=== PATIENT | female | born 1995 | race Caucasian/White ===

== ENCOUNTER → 2021-02-28 00:17 | Outpatient (CLI) | payer OTHER, SELFPAY ==
[2021-02-28 16:43] LABS: SARS-CoV-2 RNA PCR Negative
== END ==
PROVIDERS: Visit Provider Surgery Plastic and Reconstructive Surgery
DX: Z01.812 Encounter for preprocedural laboratory examination (principal); Z20.822 Contact with and (suspected) exposure to COVID-19
CPT/HCPCS: C9803; U0003; U0005

== ENCOUNTER 2021-03-03 00:44 | Day surgery (SDC) | payer OTHER, SELFPAY ==
[2021-02-24 14:42] VITALS: BMI 31.9
[2021-03-03] VITALS (7 sets, daily range): BP systolic 110–140; BP diastolic 60–76; PULSE 81–98; RESP 10–16; TEMP 36.9–37.1; O2SAT 92–100
[2021-03-03] MEDS: LACTATED RINGERS 1,000 ML 30 ML IV CONT ×2 (10:08→16:00)
[2021-03-03 10:11] LABS: Urine Cotinine NEGATIVE
--- NOTE | 2021-03-03 10:43 | WPDANESEPPF ---
Anes - Initial Pre Proc Eval Procedure: Operation Date: 03/03/21 11:30 Proposed Procedures p Bilateral Breast Augmentation with Silicone, - Duong Lawson MD s Bilateral Breast Mastopexy - Duong Lawson MD Date/Time: 03/03/21 10:43 Surgeon: Duong Lawson MD Pre Op Diagnosis: micromastia , breast ptosis Patient Data Age: 25 Gender: F Height: 1.6 m Weight: 83.4 kg Last Vital Signs Temp 98.8 F 03/03/21 09:49 Pulse 83 03/03/21 09:49 Resp 16 03/03/21 09:49 BP 122/76 03/03/21 09:49 Pulse Ox 100 03/03/21 09:49 Allergies Allergy/AdvReac Type Severity Reaction Status Date / Time loratadine [From Claritin] Allergy Intermediate Hives Verified 03/03/21 09:57 Home Medications Medication Instructions Recorded Confirmed Type zbjtfhwiva-ibphtllidsncc-cnlz 1 cap PO Q4-6H PRN 02/24/21 03/03/21 History carisoprodol 350 mg tablet 350 mg PO TID PRN #21 tablet 02/24/21 03/03/21 Rx docusate sodium 100 mg capsule 100 mg PO DAILY #14 cap 02/24/21 03/03/21 Rx norethindrone-e.estradiol-iron 1 tablet PO DAILY 02/24/21 03/03/21 History [Blisovi 24 Fe] ondansetron HCl 4 mg tablet 4 mg PO Q8H #21 tablet 02/24/21 03/03/21 Rx oxycodone-acetaminophen 5 mg-325 1 tablet PO Q6H PRN #15 tablet 02/24/21 03/03/21 Rx mg tablet Laboratory Tests 03/03/21 09:51 Cotinine Negative Patient hx anesthesia problems: none Family hx anesthesia problems: none PMFSH Past Medical History Medical History (Updated 03/03/21 @ 10:39 by Carlos Castrejon MD) Anxiety Surgical History Surgical History History of Social History Social History Smoking status: Former smoker Tobacco type: cigarettes and e-cigarettes/vaping Smoking end date: 01/25/21 Additional smoking assessment comments: pt stated she stopped vaping 1 month ago Alcohol intake: never Substance use: former Substance use type: crack/cocaine, amphetamines and methamphetamine Other substance usage details: pt stated she graduated 1 year ago Last use: 2 years Living arrangements: with family Gender identity (if verbalized by the patient): Male Sexual Orientation (if Verbalized by the Patient): Straight or Heterosexual Spiritual care concerns: No Anes - Eval Final PreProcedure Day of Procedure 03/03/21 10:43 Patient weight: overweight Heart: regular rate and rhythm Lungs: clear to auscultation Airway: Mallampati scale class II Neurological: alert and oriented Last oral intake: >/= 8 hours ASA classification: II Emergent: no Anesthetic plan: proceed Anesthesia type and monitoring: general LMA (or ETT) and standard monitoring Informed Consent: The patient's anesthetic plan and its attendant risks and benefits were discussed with the patient/family/POA. Questions were solicited and answers provided to the satisfaction of the patient/family/POA.
--- NOTE | 2021-03-03 10:53 | SUR.PREOP ---
informed pt delay in procedure.
--- NOTE | 2021-03-03 12:44 | WPDHPUPDATE1 ---
History and Physical Update Update Date/Time: 03/03/21 12:44 History and Physical has been reviewed, including an updated exam of the patient. There are NO changes in the patient's condition. Risks, benefits, and alternatives have been discussed and questions answered. Patient agrees to proceed with procedure.
--- NOTE | 2021-03-03 13:12 | P.OP_ITS ---
Procedure Note - Detailed Date of Procedure 03/03/21 Pre-op Diagnosis micromastia , breast ptosis Post-op Diagnosis same Procedure Performed Bilateral Augmentation Mastopexy Surgeon Duong Lawson MD Anesthesia general Findings Bilateral Superior Pedicle Invert T Mastopexy Bilateral [facility] SoftTouch 445cc Right - REF# [id number] SN [id number] Left - REF# [id number] SN [id number] Description of Procedure She is here today for bilateral breast augmentation. Previously and again today the risks, benefits, alternatives were discussed in extensive detail. I wanted her to be very realistic about the risks involved as well as expectations. We discussed aftercare and what to monitor for. Made sure answered all of her questions to her satisfaction today and consent was obtained. Marked in the preoperative holding area with their verification. The patient was taken to the operating room placed supine on the operating table. Anesthesia was provided by anesthesiology. A surgical time-out was taken. We cleansed the skin and 1% lidocaine and 0.25% Marcaine with epinephrine was used anesthetize as a field block. She was prepped and draped in a standard sterile fashion. Tegaderm nipple Padron were placed. A 15 blade used to make an incision above the inframammary fold de-epithelializing a small inferior flap in order to provide protection at the T junction. Dissection was continued at 45 degree angle until the chest wall as identified. I incised the pectoralis major along its inferior border and completely released the inferior border leaving the medial border intact. I created a subpectoral pocket in the appropriate dimensions based on our preoperative planning for the implant. I then copiously irrigated with saline solution and verified a strict hemostasis. Next the use a triple antibiotic and Betadine containing solution to irrigate the pocket. I washed my gloves with the triple antibiotic and Betadine solution. We washed the implant immediately upon opening it with this solution and only opened it when we needed it. I used implant funnel and no-touch technique. The implant was introduced into the pocket using the funnel. Having verified positioning of the implant this was closed using 2-0 Vicryl. I then tailor tacked the breast into position. Verified the markings. Marked out the nipple-areolar complex at 38 mm based on preoperative planning and intraoperative observations and measurements which were in full agreement. Placed supine. De-epithelialized the superior pedicle. The remove the excess soft tissue on the inferior medial aspect bilateral. Elevated medial and lateral flaps which were well-vascularized provide for closure. I then copiously irrigated with saline solution and verified a strict hemostasis. I closed using 2-0 Vicryl along the IMF as well as vertically. 3-0 Monocryl arou nd the areola and vertically. 3-0 strata fix along the IMF. Finally closure was running subcuticular 4-0 Monocryl and tissue glue. Fluffs, Darian wrap, and surgical bra were placed. Patient was awoke and taken to PACU without difficulty. All instrument sponge counts were correct at the end of the case. Estimated Blood Loss 20 Drains No Packing No Pathology none sent Complications No immediate complications Condition stable Disposition PACU
--- NOTE | 2021-03-03 13:28 | SUR.PREOP ---
1230 pt informed further delay.
[2021-03-03] MEDS: ceFAZolin 2 GM/D5W 50 ML 2 GM/50 ML BAG IVPB (13:37)
[2021-03-03] MEDS: TRANEXAMIC ACID 1,000MG/ISO100 1,000 MG/100 ML BAG 200 MG IVPB (13:56)
[2021-03-03] MEDS: fentaNYL CITRATE INJ (*CRX) 100 MCG/2 ML VIAL 25 MCG IV PUSH ×4 (16:08→16:19)
--- NOTE | 2021-03-03 16:23 | SUR.PHASEI ---
Simple mask removed at 1622.
[2021-03-03] MEDS: HYDROmorphone HCL INJ (*CRX) 1 MG/ML SYR 0.25 MG IV PUSH ×3 (16:30→17:05)
[2021-03-03] MEDS: oxyCODONE HCL (*CRX) 5 MG TAB IR PO (17:28)
== END 2021-03-03 18:02 | disposition home or self-care (01) ==
PROVIDERS: PCP Nurse Practitioner Family; Visit Provider Surgery Plastic and Reconstructive Surgery
PROC: (CPT 19316; principal; 2021-03-03 11:30)
PROC: (CPT 19316; 2021-03-03 11:30)
DX: Z41.1 Encounter for cosmetic surgery (principal); N64.81 Ptosis of breast; N64.82 Hypoplasia of breast; F41.9 Anxiety disorder, unspecified; F17.290 Nicotine dependence, other tobacco product, uncomplicated
CPT/HCPCS: 19316; 19325; 80307; A9270; J0131; J0690; J1100; J1170; J1580; J2250; J2405; J2704; J2710; J3010; J7120

== ENCOUNTER 2022-06-22 09:09 | Emergency (ER) | payer OTHER, SELFPAY ==
[2022-06-22 09:18] VITALS: BP 125/72; PULSE 114; RESP 16; TEMP 37.2; O2SAT 99
--- NOTE | 2022-06-22 09:27 | ED.URI ---
HPI - URI/Sore Throat General Chief Complaint: Upper Respiratory Infection Stated Complaint: Sore Throat Time Seen by Provider: 06/22/22 10:01 Source: patient and RN notes reviewed Mode of arrival: ambulatory Limitations: no limitations History of Present Illness HPI Narrative: 27-year-old female presents concern for 3 day history of sore throat, swollen glands, body aches, fever, headache, general malaise. Reports she has been taking Tylenol ibuprofen. She reports her children at home have runny noses. She reports fever up to 102 MD elicited complaint: cough and sore throat Related Data Home Medications Medication Instructions Recorded Confirmed myuyhljjbz-scihxboeenvtf-nomzzcky 1 cap PO Q4-6H PRN headache 02/24/21 06/22/22 50 mg-325 mg-40 mg capsule norethindrone 1 mg-ethinyl 1 tablet PO DAILY 02/24/21 06/22/22 estradiol 20 mcg (24)-iron 75 mg (4) tablet (Blisovi 24 Fe) amitriptyline 10 mg tablet 10 mg DAILY 06/22/22 06/22/22 Allergies Allergy/AdvReac Type Severity Reaction Status Date / Time loratadine [From Claritin] Allergy Intermediate Hives Verified 06/22/22 09:36 Review of Systems Review of Systems: CONSTITUTIONAL: Reports malaise, fever. EYES: Denies visual changes, redness, or discharge. ENT: Denies rhinorrhea, congestion, sinus pain, otalgia. Reports sore throat. CARDIOVASCULAR: Denies chest pain, palpitations, or edema. RESPIRATORY: Denies cough. Denies dyspnea. GASTROINTESTINAL: Denies abdominal pain, nausea, vomiting, diarrhea SKIN: Denies rash or itching. MUSCULOSKELETAL: Reports myalgia. NEUROLOGIC: Reports headache. All systems reviewed & are unremarkable except as noted in HPI and below PMFSH Past Medical History Medical History Anxiety Surgical History Surgical History History of Social History Social History Tobacco type: cigarettes and e-cigarettes/vaping Smoking end date: 01/25/21 Additional smoking assessment comments: pt stated she stopped vaping 1 month ago Alcohol intake: never Substance use: former Substance use type: crack/cocaine, amphetamines and methamphetamine Other substance usage details: pt stated she graduated 1 year ago Last use: 2 years Gender identity (if verbalized by the patient): Male Sexual Orientation (if Verbalized by the Patient): Straight or Heterosexual Spiritual care concerns: No Comments At time of signature, agree with nursing past medical, surgical, social and family history. There is no relevant family history pertinent to the presenting complaint Exam Narrative: GENERAL: Nontoxic appearing and in no acute distress. HEAD: Normocephalic EYES: PERRLA, conjunctivae clear ENT: Nares clear. Mucous membranes moist. TM pearly kowalski with sharp light reflex bilaterally; no tragal tenderness. Oropharynx erythematous without lesions. Tonsils enlarged and without exudate, no drooling, no hoarseness, no trismus, uvula midline. NECK: Supple. No lymphadenopathy CHEST: Clear to auscultation, breath sounds equal. No wheezing, rhonchi, rales, or stridor. No respiratory distress, speaks in full sentences. HEART: Regular rate and rhythm. No murmur heard. SKIN: Warm, dry, no rash. NEURO: Alert and oriented x3. PSYCH: Normal mood and affect Course Course Emergency Course: Patient is aware of diagnosis, understands and agrees to treatment plan. Anticipatory guidance given. Patient agrees to follow-up as directed and is aware of reasons to seek care at the emergency department. Portions of this record may have been created with voice recognition software Level of Care: Express Care Visit Vital Signs Vital signs: Vital Signs Temperature 99.0 F 06/22/22 09:18 Pulse Rate 114 H 06/22/22 09:18 Respiratory Rate 16 06/22/22 09:18 Blood Pressure 1
== END 2022-06-22 10:14 | disposition home or self-care (01) ==
PROVIDERS: Emergency Provider Nurse Practitioner; PCP Internal Medicine
DX: J02.0 Streptococcal pharyngitis (principal); F17.209 Nicotine dependence, unspecified, with unspecified nicotine-induced disorders
CPT/HCPCS: 87880; 99213; G0463

== ENCOUNTER 2024-03-22 09:06 | Outpatient (CLI) | payer OTHER, SELFPAY ==
--- NOTE | ~2024-03-22 | XR_ITS ---
EXAMINATION: XR abdomen/kub 1V DATE: 03/22/2024 09:22 INDICATION: Constipation. TECHNIQUE: A supine view of the abdomen on 2 radiographs was obtained. COMPARISON: None. FINDINGS: There are no dilated loops of bowel. There is a large volume of stool in the colon. IMPRESSION: 1. Nonobstructive bowel gas pattern. Reviewed, dictated and finalized at location A.
[2024-03-22 19:21] LABS: Hematocrit 43.3 % (37.0-47.0); Hemoglobin 13.9 g/dL (12.0-15.0); Mean Corpuscular HGB Conc 32.1 g/dl (32-36); Mean Corpuscular Volume 96.4 fl (80-100); Mean Platelet Volume 9.5 fl (7.4-10.4); Platelet Count Result 293 k/mm3 (150-375); Red Blood Count 4.49 M/mm3 (4.2-5.4); White Blood Count 9.4 K/mm3 (4.5-10.0)
[2024-03-22 19:36] LABS: Alanine Aminotransferase 22 U/L (6-35); Albumin Level 4.1 g/dL (3.5-5.1); Alkaline Phosphatase 60 U/L (38-126); Anion Gap 10 mmol/L (4-12); Aspartate Amino Transferase 53 U/L (14-36); Bilirubin,Total 0.3 mg/dL (0.2-1.3); Blood Urea Nitrogen 22 mg/dL (7-17); Calcium 9.5 mg/dL (8.4-10.2); Carbon Dioxide 22 mmol/L (22-30); Chloride 106 mmol/L (98-107); Cholesterol 169 mg/dL (0-200); Estimated Glomerular Filt Rate > 60; Glucose 67 mg/dL (65-110); HDL Direct 54 mg/dL; Potassium 4.2 mmol/L (3.4-5.0); Sodium 138 mmol/L (137-145); Triglycerides 189 mg/dL (<150)
[2024-03-22 19:47] LABS: LDL Cholesterol Direct 70 mg/dL
== END 2024-03-22 09:07 | disposition home or self-care (01) ==
LOC: ANHBWCLAB 09:08
PROVIDERS: PCP Nurse Practitioner Adult Health; Visit Provider Nurse Practitioner Adult Health
DX: Z13.9 Encounter for screening, unspecified (principal); K59.00 Constipation, unspecified
CPT/HCPCS: 36415; 74018; 80053; 80061; 84439; 84443; 85027

== ENCOUNTER 2024-09-23 13:28 | Emergency (ER) | payer BC, SELFPAY ==
--- OUTSIDE RECORDS SUMMARY | 2024-09-23 13:30 | XMS_ITS | Clinical Summary ---
Author Organization [facility] Address [address] [place] [address] Care Team Providers Care Hvac Service Tech Name Role Phone Jayy Noble SERVICE DOG TRAINER-CALIBRATION SPECIALIST Primary Care Provider [phone] Source Comments [facility],non-owned Affiliates and Associated Physician Practices is amultiple site organization consisting of ambulatory clinics and hospital sitesin [place], [place], [place] and [place]. This disclosure is being madepursuant to the Care Everywhere program and may not contain all information available regarding this patient. Last updated 18.[facility] Allergies Active Allergy Reactions Criticality Noted Date Comments Loratadine Rash Medium 11/25/2018 Medications * Be aware that medications may not be up to date on this document. Alwaysverify current medications with the patient. Medication Sig Dispensed Refills Start Date End Date Status hydrOXYzine hcl (ATARAX) 50 MG tabletIndications:Anx iety Take 1 tablet by mouth 2 times daily Reasons: Feeling Anxious 60 tablet 1 03/17/2018 Active Active Problems Problem Noted Date Diagnosed Date Major depressive disorder, r ecurrent severe without psychotic features 03/14/2018 Polysubstance abuse 03/14/2018 History of posttraumatic stress disorder (PTSD) 03/14/2018 ABIGAIL (generalized anxiety disorder) 03/14/2018 Social History Tobacco Use Types Packs/Day Years Used Date Smoking Tobacco: Every Day Cigarettes 1.5 6 Smokeless Tobacco: Current Tobacco Cessation:Ready to Q uit: No; Counseling Given: Yes Alcohol Use Standard Drinks/Week Comments Yes 2 (1 standard drink = 0.6 oz pur e alcohol) 2 - 3 drinks every weekend Sex and Gender Information Value Date Recorded Sex Assigned at Not on file Gender Identity Not on file Sexual Orientation Not on file Last Filed Vital Signs Vital Sign Reading Time Taken Comments Blood Pressure 122/80 07/09/2019 2:31 PM SOLUTION ADVISOR Pulse 100 07/09/2019 2:31 PM SOLUTION ADVISOR Temperature 36.6 C (97.8 F) 07/09/2019 2:31 PM SOLUTION ADVISOR Respiratory Rate 16 07/09/2019 2:31 PM SOLUTION ADVISOR Oxygen Saturation 98% 07/09/2019 2:31 PM SOLUTION ADVISOR Inhaled Oxygen Concentration - - Weight 79.4 kg (175 lb) 07/09/2019 2:31 PM SOLUTION ADVISOR Height 160 cm (5' 3 ) 07/09/2019 2:31 PM SOLUTION ADVISOR Body Mass Index 31 07/09/2019 2:31 PM SOLUTION ADVISOR Plan of Treatment Health Maintenance Due Date Last Done Comments PAP SMEAR 1993 HIV SCREENING 2008 HEPATITIS C SCREENING 04/19/2011 DTAP/TDAP/TD VACCINES (1 - Tdap) 2012 HEPATITIS B VACCINE (1 of 3 - 19+ 3-dose series) 2012 PNEUMOCOCCAL VACCINE (1 of 2 - PCV) 2012 COVID-19 VACCINE ( - 2023-2 5 season) 2024 INFLUENZA VACCINE (#1) 2024 DEPRESSION SCREENING 08/08/2024 ZOSTER VACCINE (1 of 2) 2043 HIB VACCINE Aged Out No longer eligi ble based on patient's age to complete this topic HPV VACCINE Aged Out No longer eligi ble based on patient's age to complete this topic MENINGOCOCCAL (Group B) VACCINE Aged Out No longer eligible based on patient's age to complete this topic MENINGOCOCCAL VACCINE Aged Out No yolanda marjorie eligible based on patient's age to complete this topic Advance Directives * Full Code (Latest Code Status on File) Date Activated Date Inactivated Comments 03/14/2018 10:11 AM 03/17/2018 12:35 PM Care Teams Hvac Service Tech Relationship Specialty Start Date End Date Jayy Noble, SERVICE DOG TRAINER-CALIBRATION SPECIALIST PCP - General Nurse Practitioner 03/14/18
--- OUTSIDE RECORDS SUMMARY | 2024-09-23 13:30 | XMS_ITS | Referral Summary ---
Author Organization [facility] Address [address] [place] [address] Care Team Providers Care Supervisor Cell Operation Name Role Phone Jayy Noble METAL WINDOW FRAME MAKER-CAGE CLERK Primary Care Provider [phone] Source Comments [facility],non-owned Affiliates and Associated Physician Practices is amultiple site organization consisting of ambulatory clinics and hospital sitesin [place], [place], [place] and [place]. This disclosure is being madepursuant to the Care Everywhere program and may not contain all information available regarding this patient. Last updated 18.[facility] Allergies Active Allergy Reactions Criticality Noted Date [...] Comments Blood Pressure 122/80 07/09/2019 2:31 PM CAUSTICS LOADER Pulse 100 07/09/2019 2:31 PM CAUSTICS LOADER Temperature 36.6 C (97.8 F) 07/09/2019 2:31 PM CAUSTICS LOADER Respiratory Rate 16 07/09/2019 2:31 PM CAUSTICS LOADER Oxygen Saturation 98% 07/09/2019 2:31 PM CAUSTICS LOADER Inhaled Oxygen Concentration - - Weight 79.4 kg (175 lb) 07/09/2019 2:31 PM CAUSTICS LOADER Height 160 cm (5' 3 ) 07/09/2019 2:31 PM CAUSTICS LOADER Body Mass Index 31 07/09/2019 2:31 PM CAUSTICS LOADER Functional Status Functional Status Response Date of Assess ment Is person deaf or have serious hearing difficult y? No 03/17/2018 Is person blind or have serious difficulty seein g? No 03/17/2018 Does person have serious dif ficulty walking/climbing stairs? No 03/17/2018 Does person have difficulty dressing/bathing? No 03/17/2018 Does person have difficulty doing errands alone? No 03/17/2018 Cognitive Status Response Date of Assessm ent Does person have difficulty concentrating/remembering/making decisions? No 03/17/2018 Plan of Treatment Not on file Advance Directives * Full Code (Latest Code Status on File) Date Activated Date Inactivated Comments 03/14/2018 10:11 AM 03/17/2018 12:35 PM Care Teams Supervisor Cell Operation Relationship Specialty Start Date End Date Jayy Noble, ALDEN-CAGE CLERK PCP - General Nurse Practitioner 03/14/18
--- OUTSIDE RECORDS SUMMARY | 2024-09-23 13:30 | XMS_ITS | Data Portability ---
Author Organization [facility] [employer], Main Office Address [address] [place] [address] Assessment No assessment recorded. Plan of Treatment Reminders Order Date Submit Date Provider Last Modified By Organization Details Last Modified Time Details Appointments None recorded. Lab urinalysis, dipstick 2022 023 [facility], [address] [place] [address], [place], [address], 3 12:54:27 culture, urine 2022 023 [place] [employer] [facility], [address] [address], [place], [address], 3 08:05:42 lipid panel, serum [address] (Lab), [address] [place], [address], 3 10:13:00 TSH, serum or plasma [address] (Lab), [address] [place], [address], 3 10:13:00 CMP, serum or plasma [address] (Lab), [address] [place], [address], 3 10:12:59 glycohemogl obin, total, blood [address] (Lab), [address] [place], [address], 3 10:13:00 CBC w/ auto diff [address] (Lab), [address] [place], [address], 3 10:12:59 vitamin B12, serum [address] (Lab), [address] [place], [address], 3 10:13:00 Referral None recorded. Procedures None recorded. Surgeries None recorded. Imaging None recorded. Medication Orders triamcinolo ne acetonide 0.5 % topical cream 2022 023 [facility]1304, [address], [place], [place], [id number], 3 15:05:43 cyclobenzap rine 5 mg tablet 2022 023 [facility] #68308, [address], [place], [place], [id number], 3 15:05:43 meloxicam 15 mg tablet 2022 023 [facility] #46994, [address], [place], [place], [id number], 3 15:05:42 hydroxyzine HCl 25 mg tablet 2022 023 [facility] #89661, [address], [place], [place], [id number], 3 15:05:42 Bactrim DS 800 mg-160 mg tablet 2022 023 [email or web address] #30411, [address], [place], [place], [id number], 3 07:51:22 ondansetron 8 mg disintegrat ing tablet 2022 023 [facility] #04454, [address], [place], [place], [id number], 3 14:33:14 Qulipta 60 mg tablet 2022 023 [email or web address] #31183, [address], [place], [place], [id number], 3 14:33:21 cyclobenzap rine 5 mg tablet 2022 023 [place] [facility] #77964, [address], [place], [place], [id number], 3 12:45:43 Debrox 6.5 % ear drops 2022 023 [email or web address] [facility] #78290, [address], [place], [place], [id number], 3 16:48:05 cyclobenzap rine 5 mg tablet 2022 023 [email or web address] #05986, [address], [place], [place], [id number], 3 16:48:05 Patient TargetsNo targets recorded. Patient Instructions Encounter Date Encounter Id Patient Instructions Last Modified By Organization Details Last Modified Time 11/25/2022 [id number] 3 mo fu headache , labs, right excess cerumen. Not available 11/25/2022 16:48:59 03/10/2023 [id number] FU in 6 mo HUDSON, migraine, joint pain Not available 03/10/2023 15:14:21 Reason for Referral None Reported. Results Created Date Observation Date Name Description Value Unit Range Abnormal Flag Note LastModifiedBy Organization Detail LastModifiedTime 01/07/2001/07/2023 LIPID PANEL , STAND YOSELIN cholesterol, total 167 mg/dL <200 normal Not Available [employer] [address] [address] [place], [address], 01/07/2023 08:34:55 01/07/2001/07/2023 LIPID PANEL , STAND YOSELIN HDL cholesterol 46 mg/dL > or = 50 low Not Available [facility] [address] [address] [place], [address], 01/07/2023 08:34:55 01/07/2001/07/2023 LIPID PANEL , STAND YOSELIN triglyceride s 143 mg/dL <150 normal Not Available [facility] [address] [address] [place], [address], 01/07/2023 08:34:55 01/07/2001/07/2023 LIPID PANEL , STAND YOSELIN LDL-choleste rol 97 mg/dL _(skye c) normal Refer ence range : <100 Jigna able range <100 mg/dL for prima ry preve ntion ; <70 mg/dL for patie nts with CHD or diabe tic patie nts with > or = 2 CHD risk facto rs. LDL-C is now calcu lated using the Marti villagran-Hop kins ingeu jeromy n, which is a valid ated novel metho d arthuri martha barroste r accur acy than the Fried olga equat ion in the estim ation of LDL-C . Marti villagran SS et al. IRAM. 2013; 310(1 9): 2061- 2068 (http ://ed xavierati on.Qu Salvador sharma [employer]. com/f aq/FA Q164) Not Available [facility] [address] [place], [address], 01/07/2023 08:34:55 01/07/2001/07/2023 LIPID PANEL , STAND YOSELIN chol/HDLC ratio 3.6 (calc ) <5.0 normal Not Available [address], [address], 01/07/2023 08:34:55 01/07/20 23 01/07/2023 LIPID PANEL , STAND YOSELIN non HDL cholesterol 121 mg/dL _(skye c) <130 normal For patie nts with diabe yudith plus 1 major ASCVD risk facto r, treat ing to a non-H DL-C goal of <100 mg/dL (LDL- C of <70 mg/dL ) is consi luis albertod a mitesh geronimo c optio n. Not Available [address], [address], 01/07/2023 08:34:55 01/07/20 23 01/07/2023 COMPR EHENS MAMADOU METAB OLIC PANEL glucose 79 mg/dL 65-99 normal Fasti ng refer ence inter cleo Not Available [address] [place], [address], 01/07/2023 08:34:56 01/07/20 23 01/07/2023 COMPR EHENS MAMADOU METAB OLIC PANEL urea nitrogen (BUN) 22 mg/dL 7-25 normal Not Available [address], [address], 01/07/2023 08:34:56 01/07/20 23 01/07/2023 COMPR EHENS MAMADOU METAB OLIC PANEL creatinine 0.98 mg/dL 0.50-0 .96 high Not Available [address], [address], 01/07/2023 08:34:56 01/07/20 23 01/07/2023 COMPR EHENS MAMADOU METAB OLIC PANEL eGFR 80 mL/mi n/1.7 3m2 > or = 60 normal The eGFR is based on the CKD-E PI 2020 equat ion. To calcu late the new eGFR from a previ ous Creat inine or Cysta tin C resul t, go to https ://antonio ryan/curt zuniga s/ kdoqi /gfr% 5Fcal culat or Not Available [address], [address], 01/07/2023 08:34:56 01/07/20 23 01/07/2023 COMPR EHENS MAMADOU METAB OLIC PANEL BUN/creatini ne ratio 22 (calc ) 6-22 normal Not Available [address], [address], 01/07/2023 08:34:56 01/07/20 23 01/07/2023 COMPR EHENS MAMADOU METAB OLIC PANEL sodium 139 mmol/ L 135-14 6 normal Not Available [address], [address], 01/07/2023 08:34:56 01/07/20 23 01/07/2023 COMPR EHENS MAMADOU METAB OLIC PANEL potassium 4.3 mmol/ L 3.5-5. 3 normal Not Available [address], [address], 01/07/2023 08:34:56 01/07/20 23 01/07/2023 COMPR EHENS MAMADOU METAB OLIC PANEL chloride 108 mmol/ L 98-110 normal Not Available [address], [address], 01/07/2023 08:34:56 01/07/20 23 01/07/2023 COMPR EHENS MAMADOU METAB OLIC PANEL carbon dioxide 22 mmol/ L 20-32 normal Not Available [address], [address], 01/07/2023 08:34:56 01/07/20 23 01/07/2023 COMPR EHENS MAMADOU METAB OLIC PANEL calcium 9.0 mg/dL 8.6-10 .2 normal Not Available [address], [address], 01/07/2023 08:34:56 01/07/20 23 01/07/2023 COMPR EHENS MAMADOU METAB OLIC PANEL protein, total 6.7 g/dL 6.1-8. 1 normal Not Available [address], [address], 01/07/2023 08:34:56 01/07/20 23 01/07/2023 COMPR EHENS MAMADOU METAB OLIC PANEL albumin 3.9 g/dL 3.6-5. 1 normal Not Available [address], [address], 01/07/2023 08:34:56 01/07/20 23 01/07/2023 COMPR EHENS MAMADOU METAB OLIC PANEL globulin 2.8 g/dL_ (calc ) 1.9-3. 7 normal Not Available [address], [address], 01/07/2023 08:34:56 01/07/20 23 01/07/2023 COMPR EHENS MAMADOU METAB OLIC PANEL albumin/glob ulin ratio 1.4 (calc ) 1.0-2. 5 normal Not Available [address], [address], 01/07/2023 08:34:56 01/07/20 23 01/07/2023 COMPR EHENS MAMADOU METAB OLIC PANEL bilirubin, total 0.3 mg/dL 0.2-1. 2 normal Not Available [address], [address], 01/07/2023 08:34:56 01/07/20 23 01/07/2023 COMPR EHENS MAMADOU METAB OLIC PANEL alkaline phosphatase 61 U/L 31-125 normal Not Available [address], [address], 01/07/2023 08:34:56 01/07/20 23 01/07/2023 COMPR EHENS MAMADOU METAB OLIC PANEL AST 18 U/L 10-30 normal Not Available [address], [address], 01/07/2023 08:34:56 01/07/20 23 01/07/2023 COMPR EHENS MAMADOU METAB OLIC PANEL ALT 22 U/L 6-29 normal Not Available [address], [address], 01/07/2023 08:34:56 01/07/2001/07/2023 CBC (INCL UDES DIFF/ PLT) white blood cell count 6.8 thous and/u L 3.8-10 .8 normal Not Available [address], [address], 01/07/2023 08:34:56 01/07/20 23 01/07/2023 CBC (INCL UDES DIFF/ PLT) red blood cell count 4.54 susan on/uL 3.80-5 .10 normal Not Available [address], [address], 01/07/2023 08:34:56 01/07/2001/07/2023 CBC (INCL UDES DIFF/ PLT) hemoglobin 13.6 g/dL 11.7-1 5.5 normal Not Available [address], [address], 01/07/2023 08:34:56 01/07/2001/07/2023 CBC (INCL UDES DIFF/ PLT) hematocrit 40.9 % 35.0-4 5.0 normal Not Available [address], [address], 01/07/2023 08:34:56 01/07/20 23 01/07/2023 CBC (INCL UDES DIFF/ PLT) MCV 90.1 fL 80.0-1 00.0 normal Not Available [address], [address], 01/07/2023 08:34:56 01/07/2001/07/2023 CBC (INCL UDES DIFF/ PLT) MCH 30.0 pg 27.0-3 3.0 normal Not Available [address], [address], 01/07/2023 08:34:56 01/07/2001/07/2023 CBC (INCL UDES DIFF/ PLT) MCHC 33.3 g/dL 32.0-3 6.0 normal Not Available [address], [address], 01/07/2023 08:34:56 01/07/2001/07/2023 CBC (INCL UDES DIFF/ PLT) RDW 12.6 % 11.0-1 5.0 normal Not Available [address], [address], 01/07/2023 08:34:56 01/07/2001/07/2023 CBC (INCL UDES DIFF/ PLT) platelet count 302 thous and/u L 140-40 0 normal Not Available [address], [address], 01/07/2023 08:34:56 01/07/2001/07/2023 CBC (INCL UDES DIFF/ PLT) MPV 9.6 fL 7.5-12 .5 normal Not Available [address], [address], 01/07/2023 08:34:56 01/07/2001/07/2023 CBC (INCL UDES DIFF/ PLT) absolute neutrophils 3189 cells /uL 1500-7 800 normal Not Available [address] [place], [address], 01/07/2023 08:34:56 01/07/20 23 01/07/2023 CBC (INCL UDES DIFF/ PLT) absolute lymphocytes 2890 cells /uL 850-39 00 normal Not Available [facility] [address], [address], 01/07/2023 08:34:56 01/07/20 23 01/07/2023 CBC (INCL UDES DIFF/ PLT) absolute monocytes 428 cells /uL 200-95 0 normal Not Available [facility] [address], [address], 01/07/2023 08:34:56 01/07/20 23 01/07/2023 CBC (INCL UDES DIFF/ PLT) absolute eosinophils 252 cells /uL 15-500 normal Not Available [facility] [address], [address], 01/07/2023 08:34:56 01/07/20 23 01/07/2023 CBC (INCL UDES DIFF/ PLT) absolute basophils 41 cells /uL 0-200 normal Not Available [facility] [address], [address], 01/07/2023 08:34:56 01/07/20 23 01/07/2023 CBC (INCL UDES DIFF/ PLT) neutrophils 46.9 % normal Not Available [facility] [address], [address], 01/07/2023 08:34:56 01/07/20 23 01/07/2023 CBC (INCL UDES DIFF/ PLT) lymphocytes 42.5 % normal Not Available [facility] [address], [address], 01/07/2023 08:34:56 01/07/20 23 01/07/2023 CBC (INCL UDES DIFF/ PLT) monocytes 6.3 % normal Not Available [facility] - [address], [address], 01/07/2023 08:34:56 01/07/20 23 01/07/2023 CBC (INCL UDES DIFF/ PLT) eosinophils 3.7 % normal Not Available [address], [address], 01/07/2023 08:34:56 01/07/2001/07/2023 CBC (INCL UDES DIFF/ PLT) basophils 0.6 % normal Not Available [facility] [address], [address], 01/07/2023 08:34:56 01/07/2001/07/2023 VITAM IN B12 vitamin B12 616 pg/mL 200-11 00 normal Not Available [address], [address], 01/07/2023 08:34:57 01/07/2001/07/2023 TSH W/REF RYAN TO FT4 TSH w/reflex to FT4 2.55 mIU/L normal Refer ence Range > or = 20 Years 0.40- 4.50 Pregn thomas Range s First trime ster 0.26- 2.66 Secon d trime ster 0.55- 2.73 Third trime ster 0.43- 2.91 Not Available [address], [address], 01/07/2023 08:34:58 01/07/2001/07/2023 HEMOG LOBIN A1C hemoglobin A1C 4.9 %_of_ total _HGB <5.7 normal For the purpo se of adryan young for the prese nce of diabe yudith: <5.7% Consi stent with the absen ce of diabe yudith 5.7-6 .4% Consi stent with incre ased risk for diabe yudith (pred iabet es) > or =6.5% Consi stent with diabe yudith This assay resul t is consi stent with a decre ased risk of diabe yudith. Curre ntly, no conse nsus exist s regrito thomas use of hemog lobin A1c for diagn osis of diabe yudith in child saul. Accor ding to Ameri can Diabe yudith Assoc iatio n (ADA) guide lines , hemog lobin A1c <7.0% repre sents optim al contr ol in non-p regna nt diabe tic patie nts. Diffe rent metri cs may apply to speci fic patie nt popul ation s. Stand ards of Medic al Care in Diabe yudith(A DA). Not Available [facility] [address] [address], [place], [address], 01/07/2023 08:34:59 01/19/20 23 01/18/2023 CULTU RE URINE urc ===== ===== ===== ===== ===== ===== ===== ===== ===== ===== ===== ===== ===== ===== ===== ===== ===== ===== ===== ===== ===== ===== ===== ===== CULTU RE NO.: [id number] Exam Statu s: Final Exam Type: CULTU RE URINE ===== ===== ===== ===== ===== ===== ===== ===== ===== ===== ===== ===== ===== ===== ===== ===== ===== ===== ===== ===== ===== ===== ===== ===== Cultu re Repor t: Organ ism #01 Esche ryanne a coli (escc ol) Antib iotic s escco l Achie vable Achie vable (01) Dosag e Serum Level Urine Level mcg/m l mcg/m l Keren luz elena <=2 S 021A Ampic illin >=32 R 021A Ampic illin /Sulb actam 16 I 021A Cefaz ramos <=4 S 021A Cefep funmilayo <=1 S 021A Cefox itin <= 4 S 021A Ceftr iaxon e <=1 S 021A Cipro floxa luz elena <=0.2 5 S 021A ESBL NEG - 021A Genta micin <=1 S 021A Levof loxac in <=0.1 2 S 021A Merop enem <=0.2 5 S 021A Piper acill in./T azaba <=4 S 021A Tobra mycin <=1 S 021A Trmet hopri m.Sul fa >=320 R 021A rt - Test Card Code AST-G N 021A o2 - Final Organ ism ESCHE R 021A af - Antib iotic Fami TRIME T 021A af - Antib iotic Famil y Na ap - Pheno type Name RESIS T 021A ap - Pheno type Name Nitro furan toin <=16 S 021A Not Available [facility] (Lab) [address] [place], [address], 01/20/2023 07:38:45 01/19/20 23 01/18/2023 urina lysis , dipst ick Leukocytes (reference range: negative jammie/ l) Trace Not Available [address], [address], 01/18/2023 12:24:07 01/19/20 23 01/18/2023 urina lysis , dipst ick Nitrite (reference rage: negative mg/dl) positi ve Not Available [address], [address], 01/18/2023 12:24:07 01/19/20 23 01/18/2023 urina lysis , dipst ick Urobilinogen (reference range: 0.2-1 mg/dl) 0.2 Not Available [address], [address], 01/18/2023 12:24:07 01/19/20 23 01/18/2023 urina lysis , dipst ick Protein (reference range: negative mg/dl) Trace Not Available [address], [address], 01/18/2023 12:24:07 01/19/20 23 01/18/2023 urina lysis , dipst ick pH (reference range: 5-7) 6.0 Not Available [address], [address], 01/18/2023 12:24:07 01/19/20 23 01/18/2023 urina lysis , dipst ick Blood (reference range: negative William/ l) Small Not Available [address], [address], 01/18/2023 12:24:07 01/19/20 23 01/18/2023 urina lysis , dipst ick Specific [place] (reference range: 1.005-1.030) 1.030 Not Available [address], [address], 01/18/2023 12:24:07 01/19/2001/18/2023 urina lysis , dipst ick Ketone (reference range: negative mg/dl) Small Not Available [address], [address], 01/18/2023 12:24:07 01/19/20 23 01/18/2023 urina lysis , dipst ick Bilirubin (reference range: negative mg/dl) Negati ve Not Available [address] [place], [address], 01/18/2023 12:24:07 01/19/20 23 01/18/2023 urina lysis , dipst ick Glucose (reference range: negative mg/dl) Negati ve Not Available [address], [address], 01/18/2023 12:24:07 01/19/20 23 01/18/2023 urina lysis , dipst ick Appearance Clear Not Available [address], [address], 01/18/2023 12:24:07 01/19/20 23 01/18/2023 urina lysis , dipst ick Color Doran Not Available [address], [address], 01/18/2023 12:24:07 Result Notes None recorded. Problems Name Problem SNOMED Code Status Onset Date Resolution Date Notes Provider Name and Address Organization Details Recorded Time Tension-typ e headache 720730754 Active 023 Jailene Osei NP [address], [place], [address], [facility] 3 16:26:31 Excessive cerumen in ear canal 854900987 Active 023 Jailene Osei NP [address], [place], [address], [facility] 3 16:37:20 Low back pain 827756312 Active 023 Jailene Osei NP [address], [address], [place], [address], [facility] 3 12:23:59 Fever 915327972 Active 023 Jailene Osei NP [address], [place], [address], [place] [facility] 3 12:24:17 Nausea 331425340 Active 023 Jailene Osei NP [address], [place], [address], [place] [facility] 3 12:24:23 Viral syndrome 650924294 Active 023 Jaielne Osei NP [address], [place], [address], [place] [facility] 3 12:34:47 Acute urinary tract infection 587559438 Active 023 Jailene Osei NP [address], [place], [address], [place] [facility] 3 12:37:50 Migraine 91147393 Active 023 Jailene Osei NP [address], [place], [address], [place] [facility] 3 12:42:30 Multiple joint pain 11596660 Active 023 Jailene Osei NP [address], [place], [address], [place] [facility] 3 14:59:29 Anxiety 96752953 Active 023 Jailene Osei NP [address], [place], [address], [place] [facility] 3 15:01:34 Pruritic rash 55771562 Active 023 Jailene Osei NP [address], [place], [address], [place] [facility] 3 15:04:38 Excessive cerumen in ear canal 391962227 Active 023 Jailene Osei NP [address], [place], [address], [place] 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 3 09:52:21 Problem Notes None recorded. Procedures Surgical History Date Name Laterality Status Provider Name and Address Organization Details Recorded Time 3 Cerumen Removal completed Jailene Osei NP [address] [facility], [facility] [address], [place], [address], [facility] 03/10/2023 15:13:20 3 Date of Last Pap Smear completed Jialene Dawson RN [facility] [employer] 11/25/2022 16:14:42 1 Breast Implants completed Jailene Dawson RN [facility] [employer] 11/25/2022 16:10:09 3 delivery completed Jailene Dawson RN [facility] [employer] 11/25/2022 16:09:55 Imaging Results None recorded. Procedure Notes None recorded. Medical Equipment None Reported. Allergies Allergen ID Allergen Name Allergen Category Reaction Reaction Severity Criticality Documentation Date Start Date Code Code System Note Provider Name and Address Organization Details Recorded Time 32371 Claritin medicatio n hives Not available Not available 11/25/202211114 6 RxNorm Jailene Dawson RN [facility] [place], [facility] [employer] [facility] 3 16:03:27 Medications Name Sig Start Date Stop Date Status Note LastModified by Organization Details LastModified Time buspirone 5 mg tablet TAKE 1 TABLET BY MOUTH TWICE DAILY FOR 45 DAYS 11/25 completed Not Available Not Available Not Available triamcino lone acetonide 0.5 % topical cream APPLY THIN LAYER TOPICALL Y TO THE AFFECTED AREA TWICE DAILY active Not Available Not Available No t Available valacyclo vir 1 gram tablet Take 1 tablet(s ) every 12 hours by oral route as needed for 2 days. active Not Available Not Available No t Available meloxicam 15 mg tablet TAKE 1 TABLET BY MOUTH EVERY DAY active Not Available Not Available No t Available Debrox 6.5 % ear drops INSTILL 5 DROPS INTO AFFECTED EAR(S) BY OTIC ROUTE 2 TIMES PER DAY 2022 active Not Available Not Available Not Avai lable penicilli n V potassium 500 mg tablet TAKE 1 TABLET BY MOUTH EVERY 12 HOURS FOR 10 DAYS 11/25 completed Not Available Not Available Not Available phentermi ne 37.5 mg tablet TAKE 1 TABLET BY MOUTH ONCE DAILY 11/25 completed Not Available Not Available Not Available butalbita l-acetami nophen-ca ffeine 50 mg-325 mg-40 mg tablet TAKE 1 TABLET BY MOUTH EVERY 6 HOURS NEEDED FOR MIGRAINE 03/10 completed working to wean off. Not Available Not Available Not Available ondansetr on 8 mg disintegr ating tablet DISSOLVE 1 TABLET ON THE TONGUE TWICE DAILY NEEDED 03/10 completed Not Available Not Available Not Available amitripty line 10 mg tablet TAKE 2 TABLETS BY MOUTH EVERY NIGHT 11/25 completed Not Available Not Available Not Available hydroxyzi ne HCl 25 mg tablet TAKE 1 TABLET BY MOUTH THREE TIMES DAILY NEEDED active Not Available Not Available No t Available Bactrim DS 800 mg-160 mg tablet Take 1 tablet every 12 hours by oral route for 5 days. 01/20 completed Not Available Not Available Not Available cyclobenz aprine 5 mg tablet TAKE 1 TABLET BY MOUTH THREE TIMES DAILY NEEDED active Not Available Not Available No t Available nitrofura ntoin monohydra te/macroc rystals 100 mg capsule TAKE 1 CAPSULE BY MOUTH EVERY 12 HOURS FOR 7 DAYS 03/10 completed Not Available Not Available Not Available ibuprofen 1000mg TID 03/10 completed Not Available Not Available Not Available PreviDent 5000 Booster Plus 1.1 % dental paste active Not Available Not Available Not Available Fe 24 1 mg-20 mcg (24)/75 mg (4) tablet TAKE 1 TABLET BY MOUTH EVERY DAY active Not Available Not Available No t Available Qulipta 60 mg tablet TAKE 1 TABLET BY MOUTH EVERY DAY active Not Available Not Available No t Available Vitals Date Recorded Body weight Body mass index (BMI) Body height Body temperature Heart rate Respiratory rate Oxygen saturation Oxygen saturation in Arterial blood by Pulse oximetry Pain severity - 0-10 verbal numeric rating [Score] - Reported Systolic blood pressure Diastolic blood pressure Provider Name and Address Organization Details Last Updated DateTime 3 82357.5 3 g 33 kg/m2 160.02 cm 97.7 [degF] 94 /min 16 /min 97 % 97 % 6 136 mm[Hg] 84 mm[Hg] Jailene Dawson RN [facility] 3 16:06:50 Date Recorded Body height Body mass index (BMI) Body weight Body temperature Heart rate Oxygen saturation Oxygen saturation in Arterial blood by Pulse oximetry Systolic blood pressure Diastolic blood pressure Provider Name and Address Organization Details Last Updated DateTime 3 160.02 cm 32.5 kg/m2 69389.8 5 g 98.3 [degF] 115 /min 98 % 98 % 114 mm[Hg] 86 mm[Hg] Hoa Cullen MA [facility] [employer] 3 12:09:07 Date Recorded Body height Body mass index (BMI) Body weight Body temperature Heart rate Respiratory rate Oxygen saturation Oxygen saturation in Arterial blood by Pulse oximetry Pain severity - 0-10 verbal numeric rating [Score] - Reported Systolic blood pressure Diastolic blood pressure Provider Name and Address Organization Details Last Updated DateTime 3 160.02 cm 31.6 kg/m2 40154.4 9 g 97.2 [degF] 84 /min 16 /min 98 % 98 % 0 138 mm[Hg] 96 mm[Hg] Jailene Dawson RN [facility] [employer] 14:36:16 Social History Question Answer Notes LastModified by Organization Details LastModified Time Tobacco Smoking Status Former Smoker Jailene Dawson RN [place], [place] [employer] [employer] 11/25/2022 16:12:11 Do You Have An Advance Directive? No Information not available 03/10/2023 What Is Your Level Of Alcohol Consumption? None Information not available 11/25/2022 What Is Your Level Of Caffeine Consumption? Moderate Coffee Information not available 11/25/2022 What Is Your Code Status? Full Code Information not available 03/10/2023 In The 14 Days Before Symptom Onset, Have You Had Close Contact With A Laboratory[facility] rmed COVID-19 While That Case Was Ill? No Information not available 11/25/2022 In The 14 Days Before Symptom Onset, Have You Had Close Contact With A Person Who Is Under Investigation For COVID-19 While That Person Was Ill? No Information not available 11/25/2022 Are You Currently Employed? Yes Information not available 11/25/2022 Which Illicit Or Recreational Drugs Have You Used? [place] Information not available 11/25/2022 Do You Or Have You Ever Used E-cigarettes Or Vape? Current User Of Electronic Cigarettes Information not available 11/25/2022 What Is The Highest Grade Or Level Of School You Have Completed Or The Highest Degree You Have Received? 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 No Information not available 11/25/2022 When Did You Quit Smoking? 1-5yearssincelastci jag Information not available 11/25/2022 Do You Use Insect Repellent Routinely? No Information not available 11/25/2022 Where Do You Live? SingleLevelHouse Information not available 11/25/2022 Do You Have A Medical Power Of Remnants Cutter? No Information not available 03/10/2023 How Many Children Do You Have? 1 Information not available 11/25/2022 Do You Have Any Pets? Yes Information not available 11/25/2022 Do You Use Protection During Sex? No Information not available 11/25/2022 What Is Your Relationship Status? Single Engaged Information not available 03/10/2023 Do You Use Your Seat Belt Or Car Seat Routinely? Yes Information not available 11/25/2022 Are You Sexually Active? Yes Information not available 11/25/2022 Do You Have Smoke And Carbon Monoxide Detectors In Your Home? Yes Information not available 11/25/2022 At What Age Did You Start Smoking Tobacco? 11 Information not available 11/25/2022 Are There Any Smokers In Your House? Yes Information not available 11/25/2022 Do You Participate In Social Media? Yes Information not available 11/25/2022 Do You Feel Stressed (tense, Restless, Nervous, Or Anxious, Or Unable To Sleep At Night)? [id number] Information not available 11/25/2022 Do You Use Any Illicit Or Recreational Drugs? Yes Information not available 11/25/2022 Do You Use Sunscreen Routinely? No Information not available 11/25/2022 Have You Recently Traveled Abroad? No Information not available 11/25/2022 Have You Used IV Drugs? No Information not available 11/25/2022 Do You Or Have You Ever Used Any Other Forms Of Tobacco Or Nicotine? Yes Information not available 11/25/2022 How Many Years Have You Used E-cigarettes Or Vape? 2 Information not available 11/25/2022 Sex: Unknown Functional Status Question Answer Note LastModified by Organization D etails LastModified Time What is your exercise level? None Information not available 03/10/2023 Mental Status None recorded. Family History Relationship Description Onset Age of this Age Resolved Age Notes LastModified by Organization Details LastModified Time Maternal Grandmother Malignant tumor of lung Not available 2022 16:07:18 Paternal Grandmother Heart disease Not available 2022 16:07:38 Father Family history of Factor V Leiden mutation Not available 2022 16:09:22 Brother Family history of Factor V Leiden mutation Not available 2022 16:09:22 Medical History Condition Response DEPRESSION (INCLUDING POST ) Y HEADACHES/MIGRAINES Y ANXIETY DISORDER Y Gynecological History Statement/Question Response Abnormal Pap Y Flow Light Date of LMP 01/22/2023 STIs/STDs Yes Dislike of Light during Menstrual Headac he N Do your menstrual headaches get severe N Duration of Flow (days) 3 Most Recent Mammogram Current Control Method BCPs Age at Menarche 8 Breast Problems None How many live births 1 Date of Last Colonoscopy Frequency of Cycle (Q days) Most Recent Bone Density Sexually Active? Y Do you get headaches during your period N Menses Monthly Y Date of Last Pap Smear 08/17/2022 Discharge None Obstetrics History GPAL:G 1 P 0 0 0 0 Immunizations Vaccine Type Date Status Note Provider Nam e and Address Organization Details Recorded Time Tdap 11/25/2022 completed Jailene Osei NP [address], [facility] [address], [place], [address], [facility] [employer] [facility] 11/25/2022 16:48:05 Past Encounters Encounter ID Performer Location Encounter Start Date Encounter Closed Date Diagnosis/Indication Diagnosis SNOMED-CT Code Diagnosis ICD10 Code Diagnosis Note [id number] Jailene Osei NP [address] [address] 11/25/2022 15:42:07 11/25/2022 16:52:13 Tension-type headache 703572836 G44.209 Cyclobenza yong 5 mg po tid prn headache.C ontinue water intake 64 ounces PLUS daily.Well balanced diet.Stop fioricet and amitriptyl ine. Likely having rebound headache from being on meds too long. Administra tion of diphtheria, pertussis, and tetanus vaccine 484251620 Z23 tdap Anemia screening 0827024 07 Z13.0 Diabetes m ellitus screening 079142461 Z13.1 Thyroid di sorder screening 277074923 Z13.29 Hyperlipid emia screening 444669039 Z13.220 Excessive cerumen in ear canal 156710243 H61.21 Debrox 6.5% [id number] Jailene Osei NP [address] [address] 01/18/2023 11:52:08 01/18/2023 12:57:07 Low back pain 437278764 M54.50 Stay hydrated. Ice chips, gatorade, jello, etc.Urine dip +nitrates. Fever 377942238 R50.9 OTC meds prn temp > 101.5 Nausea 527094959 R11.0 ondansetro n 8 mg bid prn nausea. Viral syndrome 787710014 B34.9 states her covid test was negative. Acute urin nancy tract infection 025065169 N39.0 Tension-type headache 39 7511401 G44.209 Cyclobenza yong 5 mg po tid prn headache.C ontinue water intake 64 ounces PLUS daily.Well balanced diet.Stop fioricet and amitriptyl ine. Likely having rebound headache from being on meds too long. Migraine 08032152 G43.90 9 Has been on amitriptyl ine, was tired. Flexeril prn. Fioricet prn.Qulipt a. [id number] Jailene Osei NP [facility] [address] [address] 03/10/2023 14:23:44 03/10/2023 15:17:08 Tension-type headache 000152087 G44.209 Cyclobenza yong 5 mg po tid prn headache.C ontinue water intake 64 ounces PLUS daily.Well balanced diet.Stop fioricet and amitriptyl ine. Likely having rebound headache from being on meds too long. Migraine 26403733 G43.90 9 Has been on amitriptyl ine, was tired. Flexeril prn. Fioricet prn.Qulipt a denied.Has been doing ok with referral specialist and diet mods.melox icam helps. Multiple joint pain 3567 8005 M25.50 Meloxicam 15 mg po daily. Anxiety 21861160 F41.9 hydroxyzin e.Improved since diet changes. Hydroxyzin e helps migraines. Pruritic rash 70371340 L 28.2 Triamcinol one cram. Excessive cerumen in ear canal 747155774 H61.21 Debrox 6.5% Health Concerns Section Related Observation LastModified by Organization Detai ls LastModified Time None Recorded Concern Status LastModified by Organization Details LastModified Time None Recorded Advance Directives Directive N: Payers Encounter Date Sequence Insurance Name Policy Number Policy Mccoy Covered Member ID Mccoy Member ID Guarantor Name 11/25/2022 1 [facility] CHOICE PLUS (PPO) [id number] Alyx Yan [id number] Alyx Yan 11/25/2022 2 [employer] (PPO) [id number] Alyx Yan [id number] Alyx Yan 01/18/2023 1 ALL [employer] INSURANCE - [facility] - CHOICE PLUS (PPO) [id number] Alyx Yan [id number] Alyx Yan 01/18/2023 2 [employer]FIRST (PPO) [id number] Alyx Yan [id number] Alyx Yan 03/10/2023 1 ALL [employer] - [facility] CHOICE PLUS (PPO) [id number] Alyx Cuencanberg [id number] Alyx Yan 03/10/2023 2 [employer]FIRST (PPO) [id number] Alyx Yan [id number] Alyxguerline Yan Notes Date Note Type Note Provider Name and Address Organization Details Recorded Time 11/25/2022 text/html Here for new patient appt.Dr. Quintanilla in [facility] Migraine- behind eyes. Stress related. Working in [employer]. When stopped drinking and smoking headaches came around 2019.Vision check utd. Glasses.Last labs about 1 year, no abnormals per patient.Sleep- bed around 10 pm and up about 6-7 am. Restless thoughout night if headache. Using Ibuprofen 1000 mg 3 times daily.Headaches are throbbing in nature. Light sensitivity, nauseated, dizziness. Computer screens make things worse. Eating well- eating clean. Small snacks. Working out routinely. No energy drinks or sweets. No chocolate. CHAPARRITA- Dr. Gregory Billy. Jailene Osei, [facility] [address] [facility], [place] [address], [place], [address], [facility] [employer] 11/25/2022 16:49:17 01/18/2023 text/html Here for fever o ff and on for the past 4 days. Feelings of no appetite.temp 102.9 max. Lowest 101.6, but here 98 degrees. Tylenol helps, but returns.Body aches and lower back pain.States this feels like kidney infection in the past.No dysuria. No hematuria.+nausea, no vomiting.No rash.No new food or drink. last dose of otc pain meds 7 am.Home covid neg per patient.- Migraine- having 3-4 migraines weekly. Flexeril helps, but still present. Has tried and failed amitriptyline in the past. Fioricet prn. Flexeril prn. Jailene Osei NP [address] [facility], [place] [address], [place], [address], [facility] 01/18/2023 12:49:56 03/10/2023 text/html Here for fu on migraines. Migraines- Avoiding gluten, flexeril prn, and hydroxyzine prn. Anxiety- stable. Rash from float trip. H Jailene Osei NP [address] [facility], [place] [address], [place], [address], [employer] 03/10/2023 15:42:58 OBGyn Episode No OBEpisode recorded.
--- OUTSIDE RECORDS SUMMARY | 2024-09-23 13:30 | XMS_ITS | Clinical Summary ---
Author Organization [facility] Address [address] [place] [address] Phone Care Team Providers Care Bar Assistant Name Role Phone Sven Quintanilla MD Primary Care Provider Allergies Active Allergy Reactions Criticality Noted Date Comments Loratadine Rash,Unknown 12/02/2016 Medications 1-20 MG-MCG(24) Tablet Take 1 Tablet by mouth daily. 08/24/2022 Active Phentermine HCl 37.5 MG Tablet Take 37.5 mg by mouth daily. 08/11/2022 Active butalbital-aceta minophen-caffein e (FIORICET, ESGIC) 50-325-40 MG TabletIndication s:Chronic tension-type headache, not intractable Take 1 Tablet by mouth every 6 hours as needed for Migraine. 30 Tablet 09/02/2022 Active amitriptyline (ELAVIL) 10 MG Tablet Take 2 Tablets by mouth nightly. 60 Tablet 2 09/02/2022 Active Active Problems Problem Noted Date Diagnosed Date Chronic tension-type headache, not intractable 0 09/02/2022 Family History Medical History Relation Name Comments Heart Disease Father Hypertension Father Stroke Father Relation Name Status Comments Father Alive Mother Alive Social History Tobacco Use Types Packs/Day Years Used Date Smoking Tobacco: Every Day Cigarettes 0.5 17.8 Started: 12/06/2006 Smokeless Tobacco: Never Tobacco Cessation:Ready to Q uit: Not Asked; Counseling Given: Not Answered Alcohol Use Standard Drinks/Week Comments Yes 0 (1 standard drink = 0.6 oz pur e alcohol) socially PHQ-2 Answer Date Recorded Total Score - Questions 1-9 0 08/09 Sexually Active Control Partners Comments Yes Comments No Sex and Gender Information Value Date Recorded Sex Assigned at Not on file Legal Sex Female 10:23 PM CDT Gender Identity Not on file Sexual Orientation Not on file Last Filed Vital Signs Vital Sign Reading Time Taken Comments Blood Pressure 116/62 09/02/2022 9:32 AM GRIT BLASTER Pulse 92 09/02/2022 9:32 AM GRIT BLASTER Temperature 36.2 C (97.2 F) 09/02/2022 9:32 AM GRIT BLASTER Respiratory Rate 16 12/26/2017 8:37 AM CDT Oxygen Saturation 95% 09/02/2022 9:32 AM GRIT BLASTER Inhaled Oxygen Concentration - - Weight 87.5 kg (193 lb) 09/02/2022 9:32 AM GRIT BLASTER Height 160 cm (5' 3 ) 09/02/2022 9:32 AM GRIT BLASTER Body Mass Index 34.19 09/02/2022 9:32 AM GRIT BLASTER Plan of Treatment Health Maintenance Due Date Last Done Comments Hepatitis C Virus (HCV) Screening 1993 Pap Smear 2014 Cervical Cancer Screening (CCS) 2023 HPV/Cotest 2023 SARS-COV-2 Immunization ( season) 2024 05/11/2021, 04/20/2021 Respiratory Syncytial Virus (RSV) Immunization (Adult) (1 - 1-dose 75+ series) 2068 Hepatitis B Immunization Completed 994, 1993, 1993 Influenza Immunization Discontinued 06/28/2016 DTaP/Tdap/Td Immunization Discontinued 2016, 11/10/2012, 10/22/1994, Additional history exists TdaP Immunization Completed 01/14/2017, 11/10/2012 Meningococcal Immunization (ACWY) Aged Out No longer eligible based on patient's age to complete this topic Pneumococcal Immunization Combined Discontinued Rotavirus Immunization Aged Out No lo nger eligible based on patient's age to complete this topic Insurance MEDICAID [facility] SAVERS Care Teams Bar Assistant Relationship Specialty Start Date End Date Sven Quintanilla MD [address] [place] [address] PCP - General Internal Medicine 08/18/22
--- OUTSIDE RECORDS SUMMARY | 2024-09-23 13:30 | XMS_ITS | Patient Health Summary ---
Author Organization [facility] Address [address] [facility] [address] Care Team Providers Care Speed Belt Sander Name Role Phone Jayy Noble PLANT ENGINE[employer]AUFFE[employer] Primary Care Provider [phone] Note from [facility],non-owned Affiliates and Associated Physician Practices is amultiple site organization consisting of ambulatory clinics and hospital sitesin [place], [place], [place] and [place]. This disclosure is being madepursuant to the Care Everywhere program and may not contain all information available regarding this patient. Last updated 18.[facility] Allergies * Loratadine(Rash) -Medium Criticality Medications * Be aware that medications may not be up to date on this document. Alwaysverify current medications with the patient. * hydrOXYzine hcl (ATARAX) 50 MG tablet(Started 03/17/2018) Take 1 tablet by mouth 2 times daily Reasons: Feeling Anxious 1 refill remaining Active Problems Problem Noted Date Diagnosed Date [...] Comments Blood Pressure 122/80 07/09/2019 2:31 PM CITRUS PICKER Pulse 100 07/09/2019 2:31 PM CITRUS PICKER Temperature 36.6 C (97.8 F) 07/09/2019 2:31 PM CITRUS PICKER Respiratory Rate 16 07/09/2019 2:31 PM CITRUS PICKER Oxygen Saturation 98% 07/09/2019 2:31 PM CITRUS PICKER Inhaled Oxygen Concentration - - Weight 79.4 kg (175 lb) 07/09/2019 2:31 PM CITRUS PICKER Height 160 cm (5' 3 ) 07/09/2019 2:31 PM CITRUS PICKER Body Mass Index 31 07/09/2019 2:31 PM CITRUS PICKER Care Teams Speed Belt Sander Relationship Specialty Start Date End Date Jayy Noble, PLANT ENGINE[employer]AUFFE[employer] PCP - General Nurse Practitioner 03/14/18
[2024-09-23 13:33] VITALS: BP 136/65; PULSE 98; RESP 16; TEMP 36.6; O2SAT 100
--- NOTE | 2024-09-23 14:37 | ED.GENADULT ---
HPI - General Adult General Chief complaint: Upper Respiratory Infection Stated complaint: Sore Throat Source: patient Mode of arrival: ambulatory Limitations: no limitations History of Present Illness HPI narrative: Patient presents for evaluation of sick symptoms since yesterday. Symptoms include sore throat and generalized body aches. Generalized body aches have improved. She denies any fever, chills, nausea, vomiting, diarrhea, cough, or SOB. Her family members recently had fevers. She has tried taking sudafed, tylenol and ibuprofen for her symptoms. Related Data Home Medications ?Medication ?Instructions ?Recorded ?Confirmed ?Last Taken ?Type valacyclovir 1 gram tablet 2,000 mg PO Q12H PRN cold sore 03/22/24 08/20/24 Unknown History Allergies Allergy/AdvReac Type Severity Reaction Status Date / Time loratadine (From Claritin) Allergy Intermediate Hives Verified 09/23/24 13:41 Review of Systems Review of Systems: CONSTITUTIONAL: Denies fever, chills, or sweats. EYES: Denies visual changes, redness, or discharge. ENT: Reports sore throat. Denies sinus congestion, rhinorrhea, otalgia CARDIOVASCULAR: Denies chest pain, palpitations, or edema. RESPIRATORY: Denies cough or dyspnea. GASTROINTESTINAL: Denies abdominal pain, nausea, vomiting, or diarrhea. GENITOURINARY: Denies dysuria or hematuria. SKIN: Denies rash or itching. MUSCULOSKELETAL: Reports generalized body aches, now improved NEUROLOGIC: Denies headache, numbness, dizziness, or weakness. PSYCHIATRIC: Denies anxiety or depression. [facility] Past Medical History Medical History Anxiety Surgical History Surgical History History of Family History Family History Mother Depression Father Depression Sibling Depression Sibling Depression Grandparent Cancer Social History Social History Smoking status: Current some day smoker Tobacco type: cigarettes and e-cigarettes/vaping Smoking end date: 01/25/21 Additional smoking assessment comments: pt stated she stopped vaping 1 month ago Alcohol intake: never Substance use: former Substance use type: crack/cocaine, amphetamines and methamphetamine Other substance usage details: pt stated she graduated 1 year ago Last use: 2 years Do You Feel Safe in your Home?: Yes Lack of Transportation: No Lack of Food: Never True Current Housing: I Have Housing Concerned About Future Housing: No Difficulty Paying Gas/Electric Bills: No Difficulty Paying for Meds: No Currently Unemployed: No Education: High School Diploma/GED Difficulty w/ Childcare or Family Care: No Living arrangements: with family 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 HEAD: Normocephalic, atraumatic. EYES: PERRLA and EOMI. ENT: Nares clear, no rhinorrhea or epistaxis. Mucous membranes moist. Oropharynx without tonsillar hypertrophy exudate or other lesions. Bilateral TMs pearly kowalski nonbulging NECK: Supple. No adenopathy or masses. No carotid bruits or JVD CHEST: Clear to auscultation. No respiratory distress. No wheezes rales or rhonchi HEART: Regular rate and rhythm. No murmur heard. Normal peripheral pulses. ABDOMEN: Soft, nontender, nondistended, normal active bowel sounds. EXTREMITIES: Normal range of motion. No edema. SKIN: Warm, dry, no rash. NEURO: No focal deficits. Alert and oriented x3. PSYCH: Normal mood and affect. Course Course Emergency Course: This is a 29 year female who presented for evaluation of sick symptoms. Influenza A positive. Discussed potentially starting Tamiflu with patient. She would like prescription. She should increase hydration. OTC medications for symptom management. Follow up with primary provider. Go to the ER for worsening symptoms. Pt in agreement with plan of care. Level of Care: Express Care Visit Vital Signs Vital signs: Vital Signs Temperature 36.6 C 09/23/24 13:33 Pulse Rate 98 09/23/24 13:33 Respiratory Rate 16 09/23/24 13:33 Blood Pressure 136/65 09/23/24 13:33 Pulse Oximetry 100 09/23/24 13:33 Oxygen Delivery Room Air 09/23/24 13:33 Temperature 36.6 C 09/23/24 13:33 Pulse Rate 98 09/23/24 13:33 Respiratory Rate 16 09/23/24 13:33 Blood Pressure 136/65 09/23/24 13:33 Pulse Oximetry 100 09/23/24 13:33 Oxygen Delivery Room Air 09/23/24 13:33 Medical Decision Making Vital Signs Vital Signs: Vital Signs Temperature 36.6 C 09/23/24 13:33 Pulse Rate 98 09/23/24 13:33 Respiratory Rate 16 09/23/24 13:33 Blood Pressure 136/65 09/23/24 13:33 Pulse Oximetry 100 09/23/24 13:33 Oxygen Delivery Room Air 09/23/24 13:33 Temperature 36.6 C 09/23/24 13:33 Pulse Rate 98 09/23/24 13:33 Respiratory Rate 16 09/23/24 13:33 Blood Pressure 136/65 09/23/24 13:33 Pulse Oximetry 100 09/23/24 13:33 Oxygen Delivery Room Air 09/23/24 13:33 Discharge Plan Discharge Clinical Impression: Influenza A Patient Disposition: Home, Self-Care Condition: Stable Instructions: Antibiotic Form, Influenza (ED) Patient Language: Malay Prescriptions: New oseltamivir [Tamiflu] 75 mg capsule 75 mg PO Q12H 5 Days Qty: 10 0RF No Action valacyclovir 1 gram tablet 2,000 mg PO Q12H PRN (Reason: cold sore) norethindrone ac-eth estradiol [Aurovela 08/27 ()] 1-20 mg-mcg tablet 1 tablet PO DAILY Qty: 63 11RF varenicline tartrate [Chantix Starting Month Box] 0.5 mg (11)- 1 mg (42) tablets,dose pack See Rx Instructions PO PER PKG DIR Qty: 53 0RF Rx Instructions: PO PER PKG DIR trazodone 100 mg tablet 100 mg PO QHS PRN (Reason: insomnia) Qty: 30 1RF gabapentin 600 mg tablet 600 mg PO DAILY PRN (Reason: headache) Qty: 90 0RF fluoxetine 20 mg capsule See Rx Instructions .ROUTE .COMPLEX Qty: 90 3RF Dose Instruction: TAKE 1 CAPSULE BY MOUTH DAILY Rx Instructions: TAKE 1 CAPSULE BY MOUTH DAILY Wegovy 1 mg/0.5 mL pen injector 1 mg subcut Q7D Qty: 2 0RF Wegovy 1.7 mg/0.75 mL pen injector 1.7 mg subcut WEEKLY Qty: 3 0RF Rx Instructions: administer weeks 13 through 16 of therapy Follow-up/Referrals: Jenelle Thapa APRN [Primary Care Provider] - Stand Alone Forms: Work/School Release IP Time of Disposition: 14:36
[2024-09-23 14:46] LABS: EDCOVIDSCREEN Negative (Negative); EDINFLUASCREEN Positive (Negative); EDINFLUBSCREEN Negative (Negative); EDSTREPNEGPOS1 Negative (Negative)
== END 2024-09-23 14:40 | disposition home or self-care (01) ==
PROVIDERS: Emergency Provider Nurse Practitioner; PCP Nurse Practitioner Adult Health
DX: J10.1 Influenza due to other identified influenza virus with other respiratory manifestations (principal); Z20.822 Contact with and (suspected) exposure to COVID-19; Z87.891 Personal history of nicotine dependence
CPT/HCPCS: 87081; 87426; 87804; 87880; 99213; G0463

== ENCOUNTER 2024-11-08 14:31 | Outpatient (CLI) | payer BC, SELFPAY ==
[2024-11-08 19:14] LABS: Hematocrit 44.1 % (37.0-47.0); Hemoglobin 14.2 g/dL (12.0-15.0); Mean Corpuscular HGB Conc 32.2 g/dl (32-36); Mean Platelet Volume 10.5 fl (7.4-10.4); Platelet Count Result 280 k/mm3 (150-375); Red Blood Count 4.74 M/mm3 (4.2-5.4); Red Cell Distribution Width 12.2 % (11.5-14.5); White Blood Count 7.5 K/mm3 (4.5-10.0)
[2024-11-08 19:16] LABS: Alanine Aminotransferase 49 U/L (6-35); Albumin Level 4.2 g/dL (3.5-5.1); Alkaline Phosphatase 69 U/L (38-126); Anion Gap 10 mmol/L (4-12); Aspartate Amino Transferase 50 U/L (14-36); Bilirubin,Total 0.3 mg/dL (0.2-1.3); Blood Urea Nitrogen 14 mg/dL (7-17); Calcium 9.3 mg/dL (8.4-10.2); Carbon Dioxide 25 mmol/L (22-30); Chloride 106 mmol/L (98-107); Cholesterol 190 mg/dL (0-200); Estimated Glomerular Filt Rate 54; Glucose 86 mg/dL (65-110); HDL Direct 47 mg/dL; Potassium 4.2 mmol/L (3.4-5.0); Sodium 141 mmol/L (137-145); Triglycerides 195 mg/dL (<150)
[2024-11-08 19:38] LABS: LDL Cholesterol Direct 97 mg/dL
[2024-11-11 02:43] LABS: Amphetamine 2175 ng/mL (<250); Amphetamines POSITIVE ng/mL (<500); Barbiturates NEGATIVE ng/mL (<300); Benzodiazepines NEGATIVE ng/mL (<100); Cocaine Metabolite NEGATIVE ng/mL (<150); Marijuana Metabolite >5000 ng/mL (<5); Marijuana Metabolite POSITIVE ng/mL (<20); Methadone Metabolite NEGATIVE ng/mL (<100); Opiates NEGATIVE ng/mL (<100); Oxidant NEGATIVE mcg/mL (<200); pH 5.8 (4.5-9.0)
== END 2024-11-08 14:32 | disposition home or self-care (01) ==
PROVIDERS: PCP Nurse Practitioner Adult Health; Visit Provider Nurse Practitioner Adult Health
DX: Z13.9 Encounter for screening, unspecified (principal); Z79.899 Other long term (current) drug therapy
CPT/HCPCS: 36415; 80053; 80061; 80299; 84443; 85027